=== PATIENT | female | born 1950 | race Caucasian/White ===

== ENCOUNTER 2016-10-21 05:28 | Observation (INO) | payer OTHER, SELFPAY ==
[~2016-10-21] VITALS: Ht 157.5 cm; Wt 68.0 kg
[2016-10-21] MEDS ORDERED: PREDNISONE1 MG PO (05:35)
[2016-10-21] MEDS ORDERED: QVAR8.7 G1 INH (05:36)
[2016-10-21] MEDS ORDERED: VITAMIN D1000 UNI1 PO (05:37)
[2016-10-21] MEDS ORDERED: PROAIR HFA8.5 GM INH (05:37)
[2016-10-21] MEDS ORDERED: CLARITIN10 MG PO (05:38)
[2016-10-22] MEDS ORDERED: IBUPROFEN600 MG PO (11:48)
--- NOTE | 2016-10-23 11:31 | HP ---
[facility] [address] [place], [place] [address] Signed ADMIT DATE: 10/21/2016 REASON FOR ADMISSION: Acute calculous cholecystitis. HISTORY: This 66-year-old white woman who lives in [place] with her and presented to the emergency room where she was evaluated by Dr. Gan having had right upper abdominal pain since yesterday after dinner. The pain has been persistent and in the subcostal and right subscapular area. She had a very similar episode about a month ago and another episode several months ago. She presents to the emergency room where she was seen at approximately 6 in the morning. Clinical diagnosis of acute cholecystitis was made and a gallbladder ultrasound was performed confirming a thickened gallbladder wall, gallstones, and so forth. She was admitted for further evaluation and care. PAST MEDICAL HISTORY: Includes a history of sarcoidosis as well as arthritis and reactive airways disease. CURRENT MEDICATIONS: Include: Prednisone 2.25 mg p.o. q. day. Beclomethasone 8.7 twice a day. Albuterol 2 puffs as needed. Vitamin D3 1000 units a day. Claritin 10 mg p.o. q. day. SOCIAL HISTORY: She is and lives in [place]. Her brother Marin Darnell, known to me from the past, recently in [place] from a stroke. She recently attended his . REVIEW OF SYSTEMS: She denies any shortness of breath or chest pain at this time. She has had no dysphagia, dysuria. Denies any hematemesis or blood per rectum. The pain is mostly in the right subcostal area, emanating and radiating to the right sub scapular area. PHYSICAL EXAMINATION: GENERAL: A pleasant white woman who is not systemically toxic. HEENT: Mucous membranes are somewhat dry. NECK: Trachea is midline. There is no carotid bruit. CHEST: Clear. HEART: Regular without murmur. Electronically Signed By: ANTONIETA OLIVEIRA MD 10/23/16 1131 PATIENT NAME: KD VASQUEZ HISTORY AND PHYSICAL DATE OF : 54 PHYSICIAN: ANTONIETA OLIVEIRA MD REPORT #: [id number] REPORT IS CONFIDENTIAL AND NOT TO BE RELEASED WITHOUT AUTHORIZATION [facility] [address] [place], [place] [address] Signed ABDOMEN: Somewhat obese, but soft. There is mild tenderness in the right upper abdomen. I detect no mass. There is no ascites. EXTREMITIES: No clubbing, cyanosis, or edema. LABORATORY DATA: Show white count of 7.9, hematocrit 40.2, platelets 249,000. Electrolytes are normal. Creatinine 0.64. Liver enzymes are normal. Bilirubin of 0.6, alkaline phosphatase 63. Urinalysis is normal. Gallbladder ultrasound confirms multiple stones and thickened gall bladder wall. ASSESSMENT: The patient has acute calculus cholecystitis. I discussed with her in detail in the presence of the nurse (Pily), the pathophysiology of biliary disease and recommendation of treatment to include cholecystectomy, preferably by laparoscopic approach. The risks of bleeding, infection, bile duct injury, need for open procedure, need for common duct exploration, and so forth; all reviewed in detail. She understands. PLAN: She needs additional fluids and certainly antibiotics and pain medication. Operation will be planned for later in the day. The patient prefers to avoid oral opiate analgesics preferring instead "high-dose Tylenol." She does not like the way opiates make her feel. The patient does not drink alcohol on any routine basis nor does she smoke. We will accommodate her request for avoidance of opiates as able. MD ORLIN Cooper/Ciarra /[id number] cc: KALEN Dawkins Dr. Electronically Signed By: ANTONIETA OLIVEIRA MD 10/23/16 1131 PATIENT NAME: KD VASQUEZ HISTORY AND PHYSICAL DATE OF : 54 PHYSICIAN: ANTONIETA OLIVEIRA MD REPORT #: [id number] REPORT IS CONFIDENTIAL AND NOT TO BE RELEASED WITHOUT AUTHORIZATION [facility] [address] [place] [id number] Signed Jaime Mayorga Electronically Signed By: ANTONIETA OLIVEIRA MD 10/23/16 1131 PATIENT NAME: KD VASQUEZ HISTORY AND PHYSICAL DATE OF : 54 PHYSICIAN: ANTONIETA OLIVEIRA MD REPORT #: [id number] REPORT IS CONFIDENTIAL AND NOT TO BE RELEASED WITHOUT AUTHORIZATION
--- NOTE | 2016-10-23 11:31 | OR ---
[facility] [address] [place], [place] [address] Signed DATE OF SERVICE: 10/21/2016 PREOPERATIVE DIAGNOSIS: Acute calculous cholecystitis. POSTOPERATIVE DIAGNOSIS: Acute calculous cholecystitis, severe. PROCEDURES PERFORMED: Laparoscopic cholecystectomy with intraoperative cholangiogram (prolonged, complicated, difficult). Surgeon directed fluoroscopy. SURGEON: Antonieta Oliveira MD ANESTHESIA: General endotracheal (Donnie Mir CRNA) and local 10 mL of 0.25% Marcaine with epinephrine. INDICATION: This 66-year-old white woman who presented to the emergency room today with severe epigastric and right subcostal pain, who was initially evaluated by Iman Gan and subsequently by Dr. Jaime Mayorga at [facility]. She was found on gallbladder ultrasound to have edematous gallbladder wall with multiple gallstones. She has been fluid resuscitated, given intravenous antibiotics and so forth, and is admitted now to undergo cholecystectomy preferred by laparoscopic approach. She understands risks of bleeding, infection, bile duct injury, need for open procedure and other unforeseen complications, and wished to proceed. FINDINGS: The gallbladder was markedly inflamed. There was white bile within it implying obstruction of the cystic duct. A prolonged, complicated, difficult dissection was required to safely dissect free the triangle of Calot and so forth, it was accomplished safely. Gallbladder once ex c ised had multiple yellow, multifaceted gallstones. There was no evidence of bile within the gallbladder itself, only white fluid (white bile). The cholangiogram was normal as was the liver. The operation was prolonged, complicated, and difficult as descri bed. DESCRIPTION OF PROCEDURE: The patient was brought to the operating room and given a general endotracheal anesthetic. She received preoperative antibiotic Ancef, sequential compression device stockings were used and heparin subcutaneously administered. The abdomen was prepared with a chlorhexidine solution and draped sterilely. An infraumbilical incision was made, and using an open Luz Marina cannula technique, pneumoperitoneum was achieved to a level of Electronically Signed By: ANTONIETA OLIVEIRA MD 10/23/16 1131 PATIENT NAME: KD VASQUEZ OPERATIVE REPORT DATE OF : 54 PHYSICIAN: ANTONIETA OLIVEIRA MD REPORT #: [id number] REPORT IS CONFIDENTIAL AND NOT TO BE RELEASED WITHOUT AUTHORIZATION [facility] [address] [place], [place] [address] Signed 14 mmHg with carbon dioxide gas. Intra-abdominal inspection showed no sign of ascites or carcinomatosis. The gallbladder was markedly tense, distended, and quite edematous. Some omental adhesions were taken down from the right abdominal wall. Gallbladder was too tense to easily grasp and therefore was decompressed with a trocar showing clear bile. This, of course, implies obstruction of the gallbladder to the cystic duct itself. Gallbladder was elevated cephalad and adhesions to the gallbladder infundibulum to the duodenum were taken down with blunt and sharp dissection and minimal cautery. The infundibulum and the cystic duct were markedly edematous and difficult to distinguish initially, but ultimately the cystic duct could be differentiated from the surrounding tissue. A transverse choledochotomy was made in the cystic duct allowing for egress of clear bile from the cystic duct. Using an Urrutia type cholangiocatheter, intraoperative cholangiography was undertaken showing free flow of contrast in the biliary tree with prompt emptying into the duodenum. Magnification views were undertaken to more fully elucidate the area of the cystic duct and previous application of hemoclips. It was normal. Catheter was removed and cystic duct was triply clipped and divided, and the gallbladder was dissected free in a retrograde fashion using electrocautery. Gallbladder was placed in an Endobag and extracted through the infraumbilical port site and opened on the back table showing pink, chronic and acute inflammation of mucosa, yellow and green multifaceted gallstones, no sign of neoplasm. Irrigation was undertaken in the subhepatic space. There was no sign of bile leak, bleeding, or other problems. The trocars were removed under direct visualization showing no sign of bleeding. Excess irrigation fluid was suctioned free and trocars removed under direct visualization. The infraumbilical fascial incision was reapproximated with interrupted 0 Vicryl suture. All wounds were copiously irrigated with saline solution. Skin closed with interrupted 3-0 Vicryl. Prior to that, 10 mL of 0. 25% Marcaine with epinephrine was injected for local anesthesia of the trocar sites. Steri-Strips were applied. The patient was ultimately extubated and transferred to recovery room in good condition having suffered no complications. Sponge, needle, and instrument counts reported as correct x3. MD ORLIN Cooper/Ciarra /[id number] cc: Electronically Signed By: ANTONIETA OLIVEIRA MD 10/23/16 1131 PATIENT NAME: KD VASQUEZ OPERATIVE REPORT DATE OF : 54 PHYSICIAN: ANTONIETA OLIVEIRA MD REPORT #: [id number] REPORT IS CONFIDENTIAL AND NOT TO BE RELEASED WITHOUT AUTHORIZATION [facility] [address] [place], [place] [address] Electronically Signed By: ANTONIETA OLIVEIRA MD 10/23/16 1131 PATIENT NAME: KD VASQUEZ OPERATIVE REPORT DATE OF : 54 PHYSICIAN: ANTONIETA OLIVEIRA MD REPORT #: [id number] REPORT IS CONFIDENTIAL AND NOT TO BE RELEASED WITHOUT AUTHORIZATION
== END 2016-10-22 13:25 | disposition home or self-care (01) ==
LOC: ED 05:28 → MS 05:39
PROVIDERS: ADMIT Surgery
PROC: BF101ZZ Fluoroscopy of Bile Ducts using Low Osmolar Contrast (ICD-10-PCS; 2016-10-21)
PROC: 0FT44ZZ Resection of Gallbladder, Percutaneous Endoscopic Approach (ICD-10-PCS; principal; 2016-10-21 15:00)
DX: K80.12 Calculus of gallbladder with acute and chronic cholecystitis without obstruction (principal); D86.9 Sarcoidosis, unspecified; M19.90 Unspecified osteoarthritis, unspecified site; J45.909 Unspecified asthma, uncomplicated; E66.9 Obesity, unspecified; Z79.51 Long term (current) use of inhaled steroids; Z79.52 Long term (current) use of systemic steroids; Z79.899 Other long term (current) drug therapy; Z68.27 Body mass index [BMI] 27.0-27.9, adult
CPT/HCPCS: 00790; 74300; 76705; 80053; 81001; 83690; 85025; 94762; 96361; 96372; 96374; 96375; 96376; 99285; G0378; J0690; J1170; J1644; J1885; J2270; J2405; J2704; J3010; J7030; J7120; Q9967

== ENCOUNTER 2019-04-01 22:55 | Emergency (ER) | payer MEDICARE, OTHER ==
[~2019-04-01] VITALS: Ht 157.5 cm; Wt 70.3 kg
[~2019-04-01 22:55] MED LIST: CLARITIN10 MG PO; IBUPROFEN600 MG PO; PREDNISONE1 MG PO; PROAIR HFA8.5 GM INH; QVAR8.7 G1 INH; VITAMIN D1000 UNI1 PO
[2019-04-01] MEDS ORDERED: PULMICORT FLEX90 MCG INH (23:09)
--- NOTE | 2019-04-02 13:04 | EKG ---
[facility] [address] [facility] [place], [place] [address] Signed Normal sinus rhythm Normal ECG No previous ECGs available Confirmed by MAYA CASTILLO DO ([id number]) on 04/02/2019 1:04:33 PM Electronically Signed By: MAYA CASTILLO DO 04/02/19 1304 PATIENT NAME: KD VASQUEZ Electrocardiogram DATE OF : 54 PHYSICIAN: MAYA CASTILLO DO REPORT #: [id number] REPORT IS CONFIDENTIAL AND NOT TO BE RELEASED WITHOUT AUTHORIZATION
--- NOTE | 2019-04-02 13:06 | EKG ---
[facility] [address] [facility] [place] [address] Signed Normal sinus rhythm T wave abnormality, consider anterolateral ischemia Abnormal ECG When compared with ECG of 01-APR-2019 23:01, (Unconfirmed) Nonspecific T wave abnormality, worse in Inferior leads T wave inversion now evident in Anterolateral leads Confirmed by MAYA CASTILLO DO ([id number]) on 04/02/2019 1:06:38 PM Electronically Signed By: MAYA CASTILLO DO 04/02/19 1306 PATIENT NAME: KD VASQUEZ Electrocardiogram DATE OF : 54 PHYSICIAN: MAYA CASTILLO DO REPORT #: [id number] REPORT IS CONFIDENTIAL AND NOT TO BE RELEASED WITHOUT AUTHORIZATION
== END 2019-04-02 04:50 | disposition short-term general hospital (02) ==
LOC: ED 22:55
DX: I21.4 Non-ST elevation (NSTEMI) myocardial infarction (principal); J45.909 Unspecified asthma, uncomplicated; Z79.52 Long term (current) use of systemic steroids; Z79.899 Other long term (current) drug therapy
CPT/HCPCS: 71045; 80053; 83735; 84484; 85025; 85379; 93005; 93010; 96372; 99285-25; J1650